=== PATIENT | female | born 1985 | race Caucasian/White ===

== ENCOUNTER → 2024-10-13 | Outpatient (CLI) | payer BC ==
--- NOTE | 2024-10-13 15:33 | US ---
EXAMINATION TYPE: US pelvic complete DATE OF EXAM: 10/13/2024 COMPARISON: US 2016 CLINICAL INDICATION: Female, 39 years old with history of R10.32 LEFT LOWER QUADRANT PAIN; R10.31 RLQ PAIN; Pelvic pain x 1 week TECHNIQUE: Transvaginal (TV) and Transabdominal (TA) . Transabdominal grayscale sonographic images of the pelvis were acquired. Transvaginal sonographic im ages were medically necessary to better assess the following anatomy: uterus, endometrium and ovaries Doppler imaging: Not performed. FINDINGS: Date of LMP: Patient had ablation in 2017 - has not had a period since EXAM MEASUREMENTS: Uterus: 8.1 x 4.8 x 8.3 cm Endometrial Stripe: cm Right Ovary: 3.4 x 2.5 x 2.1 cm Left Ovary: 3.6 x 2.5 x 2.6 cm 1. Uterus: anteverted, heterogeneous, 2.0 x 1.8 x 1.9cm fibroid 2. Endometrium: thickened, large amount of blood 3. Right Ovary: wnl 4. Left Ovary: 2.1cm cystic area 5. Bilateral Adnexa: wnl 6. Posterior cul-de-sac: wnl IMPRESSION: Large amount of endometrial hemorrhagic component. Probable functional ovarian cyst left ovary. [facility], , 10/13/2024 3:30 PM
== END | disposition home or self-care (01) ==
LOC: RADUSWWP 12:54
PROVIDERS: ATTEND Family Medicine
DX: N93.9 Abnormal uterine and vaginal bleeding, unspecified (principal); R10.32 Left lower quadrant pain; R10.31 Right lower quadrant pain
CPT/HCPCS: 76830; 76856

== ENCOUNTER → 2024-10-16 | Outpatient (CLI) | payer BC ==
--- NOTE | 2024-10-23 16:30 | US ---
EXAMINATION TYPE: US abdomen complete DATE OF EXAM: 10/16/2024 COMPARISON: NONE CLINICAL INDICATION: Female, 39 years old with history of R10.32 LEFT LOWER QUADRANT PAIN; R10.31 RLQ PAIN; TECHNIQUE: Grayscale and color Doppler imaging of the abdomen was performed. FINDINGS: EXAM MEASUREMENTS: Liver Length: 19.8 cm Gallbladder Wall: 0.2 cm CBD: 0.4 cm, color Doppler imaging was utilized to isolate the common bile duct for measurement. Spleen: 14.1 cm Right Kidney: 12.0 x 5.3 x 5.7 cm Left Kidney: 11.6 x 6.2 x 5.9 cm SAP BW ARCHITECT NOTES: Pancreas: Tail obscured by overlying bowel gas Liver: Increased attenuation, decreased visualization of vessels suggestive of fatty infiltrate Gallbladder: wnl Evidence for sonographic Lawson's sign: No CBD: wnl Spleen: wnl Right Kidney: wnl Left Kidney: wnl Upper IVC: wnl Abd Aorta: wnl The liver is homogenous with increased echotexture. The intrahepatic portion of the IVC and proximal abdominal aorta are within normal limits. There is no evidence of cholelithiasis. Common bile duct is unremarkable. The visualized portions of the pancreas are homogenous. The spleen is unremarkabl e. Kidneys are symmetric and free of hydronephrosis. No renal lesions are seen. IMPRESSION: No evidence for acute process. 1. Hepatic steatosis. [facility], , 10/23/2024 4:27 PM
== END | disposition home or self-care (01) ==
LOC: RADUSWWP 08:47
PROVIDERS: ATTEND Family Medicine
DX: K76.0 Fatty (change of) liver, not elsewhere classified (principal)
CPT/HCPCS: 76700